=== PATIENT | male | born 1985 | race Caucasian/White ===

== ENCOUNTER 2024-08-16 23:36 | Emergency (ER) | payer OTHER | END 2024-08-17 00:43 | disposition home or self-care (01) | LOC: MW.ED 23:36 | DX: H66.91 Otitis media, unspecified, right ear (principal); H60.91 Unspecified otitis externa, right ear; Z88.5 Allergy status to narcotic agent; Z79.899 Other long term (current) drug therapy | CPT/HCPCS: 99282; 99283 ==